=== PATIENT | female | born 1945 | race Caucasian/White ===

== ENCOUNTER 2018-06-08 22:28 | Inpatient (IN) | payer MEDICARE, BC ==
[~2018-06-08] VITALS: Ht 157.5 cm; Wt 45.4 kg
[~2018-06-08 22:28] MED LIST: ASPI-605 PO; METO50TA16 PO; RISE35TA8 PO
--- NOTE | 2018-06-08 22:55 | NUR ---
BB RA FROM HOME C/C SLIP AND FALL AT HOME, LEFT UPPER FEMUR/HIP PAIN S/P FALL.-KO. PT DENIES SYNCOPE. PT DENIES HEAD TRAUMA. PT DENIES DIZZINESS. -N/V. DEFORMITY OF LEFT LEG NOTED. PT STATES "SEVERE" PAIN WHEN TRYING TO MOVE LEFT LEG. SKIN INTACT, WARM, AND DRY TO TOUCH. PT IS AAOX4. PT PLACED ON STORM SASH MAKER AND POX. PT SAFETY AND COMFORT MEASURES IN PLACE. RR EVEN AND UNLABORED. NO S/S OF ACUTE DISTRESS NOTED. BEDSIDE FOR EVAL.
[2018-06-08] MEDS ORDERED: MORPHINE SULFATE INJ 2 MG/ML DISP.SYRIN IV ONE (23:00)
[2018-06-08] MEDS ORDERED: ONDANSETRON HCL/PF - ER 4 MG/2 ML VIAL IV ONE (23:00)
[2018-06-08] MEDS ORDERED: MORPHINE SULFATE INJ 4 MG/ML DISP.SYRIN ONE (23:01)
[2018-06-08] MEDS ORDERED: ONDANSETRON HCL/PF 4 MG/2 ML VIAL ONE (23:01)
--- NOTE | 2018-06-08 23:07 | NUR ---
CALLED [facility]ER, MACHINE SKIVER WAS PAGED.
[2018-06-08] MEDS ORDERED: PROPOFOL 20 ML IV ONE (23:27)
[2018-06-08] MEDS ORDERED: PROPOFOL 200 MG/20 ML VIAL IV ONE (23:30)
[2018-06-08 23:40] LABS: BASOPHILS % (AUTO) 0.1 % (0.0-2.0); EOSINOPHILS % (AUTO) 1.7 % (0.0-6.0); HEMATOCRIT 40 % (33-45); HEMOGLOBIN 12.6 g/dL (11.5-14.8); LYMPHOCYTES # (AUTO) 2.5 /CMM (0.8-4.8); LYMPHOCYTES % (AUTO) 32.7 % (20.0-44.0); MEAN CORPUSCULAR HGB CONC 32 g/dl (31.0-36.0); MEAN CORPUSCULAR VOLUME 101 fL (82-100); MONOCYTES # (AUTO) 0.6 /CMM (0.1-1.30); MONOCYTES % (AUTO) 7.8 % (2.0-12.0); NEUTROPHILS # (AUTO) 4.4 /CMM (1.8-8.9); NEUTROPHILS % (AUTO) 57.7 % (43.0-81.0); PLATELET COUNT (AUTO) 189 /CMM (150-450); RDW COEFFICIENT OF VARIATION 13.5 (11.5-15.0); RED BLOOD CELL COUNT(AUTO) 3.92 MIL/uL (4.0-5.2); WHITE BLOOD COUNT (AUTO) 7.6 K/uL (4.3-11.0)
[2018-06-08 23:51] LABS: CALCIUM, SERUM 9.4 mg/dL (8.5-10.1); CARBON DIOXIDE 27 mmol/L (21-32); CHLORIDE 105 mmol/L (98-107); GLUCOSE 115 mg/dL (74-106); POTASSIUM 4.1 mmol/L (3.5-5.1); SODIUM SERUM 141 mmol/L (136-145); UREA NITROGEN, BLOOD 39 mg/dL (7-18)
[2018-06-08 23:55] LABS: INR 1.06 (0.87-1.13)
--- NOTE | 2018-06-08 23:58 | NUR ---
CONSCIOUS SEDATION PERFORMED WITH MD BAUTISTA, RT JESSICA, EMT ALAYNA, AND CONNOR MUSTAFA BEDSIDE. SEDATION AND LEFT FEMURE REDUCTION SUCCESSFUL AND PT AAOX4, RR EVEN AND UNLABORED. WILL CONTINUE TO MONITOR PT.
--- NOTE | 2018-06-09 00:28 | NUR ---
REPORT GIVEN TO OMERO BROWN FOR DOUG.
[2018-06-09] MEDS ORDERED: MORPHINE SULFATE INJ 2 MG/ML DISP.SYRIN IV PRN ×2 (00:30→22:30)
[2018-06-09] MEDS ORDERED: Z GUARD REMEDY 2 OZ OINT TP PRN (00:30)
[2018-06-09] MEDS ORDERED: ONDANSETRON HCL/PF 4 MG/2 ML VIAL IVP PRN (00:30)
[2018-06-09] MEDS ORDERED: IV NS 0.9% 1,000 ML BAG IV ONE (00:30)
[2018-06-09] MEDS ORDERED: ACETAMINOPHEN 325 MG TABLET PO PRN ×2 (00:30→22:30)
[2018-06-09] MEDS ORDERED: IV D5/ 0.9% NACL 1,000 ML IV ONE (00:30)
[2018-06-09] MEDS ORDERED: ZOLPIDEM TARTRATE 5 MG TABLET PO PRN (00:30)
[2018-06-09] MEDS ORDERED: MAG HYDROX/AL HYDROX/SIMETH 30 ML UDC PO PRN (00:30)
[2018-06-09] MEDS ORDERED: MAGNESIUM HYDROXIDE 30 ML UDC PO PRN (00:30)
[2018-06-09 00:34] LABS: APPEARANCE,URINE SL CLOUDY (CLEAR); BILIRUBIN,URINE NEGATIVE (NEGATIVE); BLOOD, URINE 1+ Ery/uL (NEGATIVE); COLOR,URINE YELLOW (YELLOW); KETONES,URINE NEGATIVE (NEGATIVE); LEUKOCYTE ESTERASE ,URINE NEGATIVE (NEGATIVE); NITRITE, URINE NEGATIVE (NEGATIVE); PROTEIN,URINE TRACE mg/dl (NEGATIVE); UGLUCOSE NEGATIVE (NEGATIVE); UROBILINOGEN,URINE 0.2 EU/dL (0.2)
[2018-06-09 00:41] LABS: BACTERIA,URINE None seen /HPF (None Seen); MUCUS,URINE Few /LPF (None Seen); SQUAMOUS EPITHELIAL CELL,UR Few /HPF (None Seen); WBC,URINE 0-2 /HPF (0-3)
[2018-06-09 00:55] VITALS: BP 150/60
--- NOTE | 2018-06-09 01:20 | NUR ---
NEW ADMISSION NOTES RECEIVED PATIENT FROM ER TO ROOM 310-2, MED SURG, ACCOMPANIED BY STAFF. A & O X 3, BELARUSIAN SPEAKING. NO SOB, NO ACUTE DISTRESS OR DISCOMFORT VERBALIZED. PT C/O MILD PAIN TO LEFT HIP BUT TOLERABLE AT THIS TIME. ON O2 @ 2LPM VIA NC TO KEEP O2 >93%. NPO ORDERED. MADE COMFORTABLE IN BED. REYNA CATH IN PLACE, DRAINING CLEAR, YELLOW COLOR URINE. IV ACCESS TO RFA WITH IVF ORDERED & LFA, SALINE LOCK, INTACT PATENT. BODY ASSESSMENT DONE, PICTURES TAKEN, PLACED IN THE CHART. ALL NEW ORDERS VERIFIED WITH MD, NOTED & CARRIED OUT. ALL BELONGINGS ACCOUNTED FOR & DOCUMENTED BY ARTIFICIAL STONE SETTER. ALL NEEDS ATTENDED TO & MET. SAFETY MEASURES IN PLACE. BED IN LOW LOCKED POSITION. CALL LIGHT WITHIN REACH. WILL CONTINUE TO MONITOR CLOSELY FOR PAIN MANAGEMENT.
--- NOTE | 2018-06-09 02:52 | NUR ---
MS RN NOTE PATIENT NOTED TO BE SLEEPING COMFORTABLY AT THIS TIME. OBSERVING CLOSELY FOR PAIN MANAGEMENT.
--- NOTE | 2018-06-09 06:30 | NUR ---
MS RN CLOSING NOTES PATIENT IS RESTING IN BED, STABLE, A & O X 3, DANISH SPEAKING. NO SOB, NO ACUTE DISTRESS OR DISCOMFORT VERBALIZED. PT C/O MILD PAIN TO LEFT HIP BUT TOLERABLE AT THIS TIME. HAS LEFT KNEE IMMOBILIZER IN PLACE FROM ER. ON O2 @ 2LPM VIA NC TO KEEP O2 >93%. NPO ORDERED. REYNA CATH IN PLACE, DRAINING TEA COLOR URINE. IV ACCESS TO RFA WITH IVF ORDERED & LFA, SALINE LOCK, INTACT PATENT. ALL NEEDS ATTENDED TO & MET. SAFETY MEASURES IN PLACE. BED IN LOW LOCKED POSITION. CALL LIGHT WITHIN REACH. WILL ENDORSE TO AM RN FOR CONTINUITY OF CARE.
--- NOTE | 2018-06-09 07:10 | NUR ---
RN NOTES RECEIVED PATIENT IN BED, A/OX3. NO SOB, NO ACUTE DISTRESS OR DISCOMFORT. C/O MILD PAIN TO LEFT HIP BUT TOLERABLE AT THIS TIME. HAS LEFT KNEE IMMOBILIZER IN PLACE FROM ER. ON O2 @ 2LPM VIA NC TO KEEP O2 >93%. NPO ORDERED. REYNA CATH IN PLACE, DRAINING TEA COLOR URINE. IV ACCESS TO RFA WITH IVF ORDERED & LFA, SALINE LOCK, INTACT PATENT. ALL NEEDS ATTENDED TO & MET. SAFETY MEASURES IN PLACE. BED IN LOW LOCKED POSITION. CALL LIGHT WITHIN REACH. WILL CONTINUE TO MONITOR.
[2018-06-09] MEDS: ASPIRIN EC 81 MG TABLET.DR PO SCH (08:28)
[2018-06-09] MEDS: METOPROLOL TARTRATE 50 MG TABLET PO SCH (08:28)
[2018-06-09 08:33] VITALS: BP 127/71
[2018-06-09 16:00] VITALS: BP 105/66
--- NOTE | 2018-06-09 16:50 | NUR ---
RN NOTES PATIENT TAKEN TO OR FOR LEFT HIP SURGERY, IN NO DISTRESS. ALL CONSENTS SIGNED.
[2018-06-09] MEDS ORDERED: CEFAZOLIN 1 GM ONE (17:23)
[2018-06-09] MEDS ORDERED: ROCURONIUM BROMIDE 50 MG/5 ML ONE ×2 (17:37→18:27)
[2018-06-09] MEDS ORDERED: BACITRACIN 50000 UNITS/VIAL ONE (18:13)
[2018-06-09] MEDS ORDERED: BUPIVACAINE 0.5 % PF 150 MG/30 ML VIAL ONE (18:13)
[2018-06-09 20:00] VITALS: BP 117/55
[2018-06-09 20:15] VITALS: BP 124/75
--- NOTE | 2018-06-09 20:15 | NUR ---
RN NOTES PT. CAME FROM OR FOR S/P ORIF ON THE LEFT HIP DRESSING DRY AND INTACT, MAKE PT. COMFORTABLE, DENIES PAIN AT THIS TIME, NO SOB, CALL LIGHT WITHIN REACH, [id number], CONTINUE TO MONITOR
--- NOTE | 2018-06-09 21:24 | NUR ---
RN NOTES SPOKE TO DR. ROBERTSON AND GOT AN ORDER OF IV FLUID .. LR @ 75ML/HRX1 ORDER NOTED AND CARRIED OUT
[2018-06-09] MEDS ORDERED: IV LR 1000 ML 1,000 ML IV ONE (22:00)
[2018-06-09] MEDS ORDERED: MORPHINE SULFATE INJ 4 MG/ML DISP.SYRIN IV PRN (22:30)
[2018-06-09] MEDS ORDERED: TRAMADOL HCL 50 MG TABLET PO PRN (22:30)
[2018-06-09] MEDS ORDERED: ENOXAPARIN SODIUM 40 MG/0.4 ML DISP.SYRIN SQ ONE (23:00)
[2018-06-10] MEDS ORDERED: CEFAZOLIN 1 GM ONE (02:21)
[2018-06-10] MEDS: CEFAZOLIN 1 GM in IV D5W 50 ML IV SCH ×3 (02:29→18:18)
[2018-06-10 06:53] LABS: CALCIUM, SERUM 7.4 mg/dL (8.5-10.1); CARBON DIOXIDE 26 mmol/L (21-32); CHLORIDE 109 mmol/L (98-107); CREATININE 0.7 mg/dL (0.6-1.3); GLUCOSE 126 mg/dL (74-106); HEMATOCRIT 30 % (33-45); HEMOGLOBIN 9.7 g/dL (11.5-14.8); LYMPHOCYTES # (AUTO) 0.6 /CMM (0.8-4.8); LYMPHOCYTES % (AUTO) 5.8 % (20.0-44.0); MAGNESIUM 1.8 mg/dL (1.8-2.4); MEAN CORPUSCULAR HGB CONC 33 g/dl (31.0-36.0); MEAN CORPUSCULAR VOLUME 101 fL (82-100); MONOCYTES # (AUTO) 0.8 /CMM (0.1-1.30); MONOCYTES % (AUTO) 8.1 % (2.0-12.0); NEUTROPHILS # (AUTO) 8.7 /CMM (1.8-8.9); NEUTROPHILS % (AUTO) 86.1 % (43.0-81.0); PHOSPHORUS 2.7 mg/dL (2.5-4.9); PLATELET COUNT (AUTO) 145 /CMM (150-450); POTASSIUM 4.4 mmol/L (3.5-5.1); RDW COEFFICIENT OF VARIATION 13.7 (11.5-15.0); RED BLOOD CELL COUNT(AUTO) 2.94 MIL/uL (4.0-5.2); SODIUM SERUM 141 mmol/L (136-145); UREA NITROGEN, BLOOD 24 mg/dL (7-18); WHITE BLOOD COUNT (AUTO) 10.1 K/uL (4.3-11.0)
[2018-06-10] MEDS ORDERED: MORPHINE SULFATE INJ 4 MG/ML DISP.SYRIN IV PRN (07:35)
[2018-06-10 08:00] VITALS: BP 104/70
--- NOTE | 2018-06-10 08:00 | NUR ---
RN MS OPENING NOTES RECEIVED PATIENT IN BED, AWAKE AOX2-3, BREATHING EVEN AND UN LABORED, NO SOB, ON NC 3L. SKIN WARM, SOFT TOUCH. NO COMPLAINT OF PAIN OR DISCOMFORT, ABLE TO PERFORM ADLS IN BED WITH MINIMAL ASSISTANCE, REYNA IN PLACE AND DRAINING, VOIDING TO A STRAW YELLOW. BED IN LOWEST LOCKED POSITION, CALL LIGHT WITHIN REACH AT ALL TIMES.
[2018-06-10] MEDS: METOPROLOL TARTRATE 50 MG TABLET PO SCH (08:43)
[2018-06-10] MEDS: ASPIRIN EC 81 MG TABLET.DR PO SCH (08:44)
--- NOTE | 2018-06-10 11:00 | NUR ---
RN NOTES RECEIVED ORDER TO TITRATE DOWN OXYGEN TO ROOM AIR, MEASURED PULSE OX ON ROOM AIR 98-100%, OXYGEN SUCCESSFULLY TITRATED DOWN TO ROOM AIR.
[2018-06-10 16:00] VITALS: BP 113/61
--- NOTE | 2018-06-10 18:57 | NUR ---
RN CLOSING NOTES PATIENT REMAINS IN BED, AWAKE ALERT AND ORIENTED X2-3, BREATHING EVEN AND UNLABORED ON ROOM AIR. NO COMPLAINT OF PAIN OR DISCOMFORT SO FAR, OFFERED PAIN MEDICINE AFTER PT AND REFUSED. ON IV ATB VIA RIGHT FOREARM #20G, ALSO HAS A RIGHT FA SALINE LOCK #18 G. BED IN LOWEST LOCKED POSITION, CALL LIGHT WITHIN REACH AT ALL TIMES, WILL ENDORSE TO NIGHT NURSE FOR DOUG
--- NOTE | 2018-06-10 19:38 | NUR ---
MS/RN OPENING NOTES RECEIVED PATIENT IN BED, AWAKE, ALERT X3, BAD [place] BAND, FAMILY AT BEDSIDE, ABLE TO VERBALIZE NEEDS, CAN TOLERATE PAIN AT THIS TIME BUT WILL CALL FOR ANY PAIN DURING THE NIGHT. RECEIVED REPORT FOR DOUG. CALL LIGHTS WITHIN REACH, , ABLE TO EAT DINNER AND WAS OFFERED FOR ANY SNACKS AND WILL MONITOR FOR ANY CONCERNS. BED IN LOCK POSIITON. ON REYNA, DRAINING, AFTER SURGERY, IV FLUIDS RUNNING, WILL CONTINUE TO MONITOR. SKIN WARM TO TOUCH,
[2018-06-10 20:00] VITALS: BP 111/62
--- NOTE | 2018-06-10 20:00 | NUR ---
MS/RN NOTES PATIENT REFUSE TO TAKE PAIN MEDICATIONS AND PREFERED TO BE IN POSITION OF COMFORT AND DO NOT WANT TO BE TURNED AT THIS TIME
--- NOTE | 2018-06-10 20:09 | NUR ---
MS/RN NOTES PULSE RATE ELEVATED BETWEEN 155-117, B/P AT 111/62, OXYGEN SATURATION AT 98 %, PER PATIENT DID NOT TAKE THE DAILY SCHEDULED OF METOPROLOL, VERBALIZED THE NEED TO INFORM MD, REFUSE TO TAKE PAIN MEDICATION AT THIS TIME, CHARGE NURSE MADE AWARE, AND PATIETN WILL BE MONITORED AND WILL F/U WITH TONIGHT FOR ANY ORDER FOR INCREASE PULSE RATE.
--- NOTE | 2018-06-10 20:27 | NUR ---
MS/RN NOTES MD CONTACTED LEFT MESSAGE TO INFORM ELEVATED PULSE RATE THAT PATIENT DID NOT TAKE METOPROLOL DURING DAY TIME WAS ON HOLD REPORTED B/P LOW, PATIENT REQUESTED MD TO BE INFORM AND TO MADE AWARE THAT PATIENT WOULD LIKE TO TAKE THE MEDICATION THAT WAS HELD IN AM.
[2018-06-10] MEDS ORDERED: METOPROLOL TARTRATE 50 MG TABLET PO ONE (21:00)
--- NOTE | 2018-06-10 21:38 | NUR ---
ms/rn notes PATIENT PULSE RATE WITHIN NORMAL RANGE AT 95-97, PATIENT REPORTED FEELING MUCH BETTER.
[2018-06-10 21:59] VITALS: BP 112/60
[2018-06-10] MEDS ORDERED: ENOXAPARIN SODIUM 40 MG/0.4 ML DISP.SYRIN SQ SCH (22:00)
[2018-06-11] MEDS: HYDROCODONE/APAP 5/325MG 1 EACH TABLET PO PRN ×2 (00:19→09:59)
--- NOTE | 2018-06-11 06:23 | NUR ---
310-1MS/RN NOTES PATIENT ABLE TO SLEEP DURING THE NIGHT, REQUESTED PAIN MEDICATION, RESPIRATIONS EVEN AND UNLABORED, TOLERATED FLUIDS, PULSE RATE WITHIN RANGE, REPOSITIONED FOR COMFORT, BED IN LOCK POSITION, CALL LIGHTS WITHIN REACH, IV HEPLOCK. WILL CONTINUE TO MONITOR AND WILL ENDORSE TO AM RN FOR DOUG.
[2018-06-11 06:40] LABS: CALCIUM, SERUM 7.7 mg/dL (8.5-10.1); CARBON DIOXIDE 27 mmol/L (21-32); CHLORIDE 106 mmol/L (98-107); CREATININE 0.8 mg/dL (0.6-1.3); GLUCOSE 112 mg/dL (74-106); POTASSIUM 4.5 mmol/L (3.5-5.1); SODIUM SERUM 140 mmol/L (136-145); UREA NITROGEN, BLOOD 22 mg/dL (7-18)
[2018-06-11 07:33] LABS: BASOPHILS % (AUTO) 0.2 % (0.0-2.0); HEMATOCRIT 27 % (33-45); HEMOGLOBIN 8.9 g/dL (11.5-14.8); LYMPHOCYTES # (AUTO) 1.3 /CMM (0.8-4.8); LYMPHOCYTES % (AUTO) 14.7 % (20.0-44.0); MEAN CORPUSCULAR HGB CONC 33 g/dl (31.0-36.0); MEAN CORPUSCULAR VOLUME 100 fL (82-100); NEUTROPHILS # (AUTO) 6.4 /CMM (1.8-8.9); NEUTROPHILS % (AUTO) 73.1 % (43.0-81.0); PLATELET COUNT (AUTO) 139 /CMM (150-450); RDW COEFFICIENT OF VARIATION 13.7 (11.5-15.0); RED BLOOD CELL COUNT(AUTO) 2.67 MIL/uL (4.0-5.2); WHITE BLOOD COUNT (AUTO) 8.7 K/uL (4.3-11.0)
[2018-06-11 08:00] VITALS: BP 106/64
[2018-06-11] MEDS ORDERED: IV NS 0.9% 1,000 ML IV ONE (08:30)
[2018-06-11] MEDS: ASPIRIN EC 81 MG TABLET.DR PO SCH (08:40)
[2018-06-11] MEDS: METOPROLOL TARTRATE 50 MG TABLET PO SCH (08:44)
--- NOTE | 2018-06-11 08:45 | NUR ---
MS RN INITIAL NOTES Patient is sitting up in bed, had breakfast with fair appetite. On room air, tolerating well, denies shortness of breath. Left hip incision dressing intact, clean and dry, no bleeding. SCD in place, no complaint of pain. Call light within reach.
[2018-06-11] MEDS ORDERED: ACET325T53 PO (12:58)
[2018-06-11] MEDS ORDERED: HYDR-3972 PO (12:58)
[2018-06-11] MEDS ORDERED: RIVA10TA PO (12:58)
[2018-06-11 16:00] VITALS: BP 110/64
--- NOTE | 2018-06-11 19:05 | NUR ---
MS RN NOTES RECEIVED PT IN BED, AT BEDSIDE. PT IS A/O X 3, VERBALLY RESPONSIVE. NO DISTRESS, NOR SOB NOTED AT THIS TIME. IV SITE ON LFA INTACT AND PATENT, NO S/S OF INFILTRATION NOTED. PT ON S/P LEFT HIP ORIF DONE ON 06/09. LEFT HIP DRESSING INTACT, CLEAN AND DRY. DENIES ANY PAIN OR DISCOMFORT AT THIS TIME. NO BLEEDING NOTED. PT FOR DC TO [facility] , AWAITING FOR TRANSPORTATION, EXIT CARE AND PICTURES DONE BY DAY SHIFT RN. SAFETY PRECAUTIONS OBSERVED. ALL NEEDS ATTENDED AND MET. KEPT COMFORTABLE. CALL LIGHT WITHIN REACH. WILL CONTINUE TO MONITOR. Addendum: 06/11/18 at 1959 by EDSON HENSLEY RN INCORRECT DOCUMENTATION TIME.
--- NOTE | 2018-06-11 19:07 | NUR ---
MS RN DISCHARGED Patient has been cleared for discharge to Rehab by MD. VS remained stable, patient ambulates with PT today, tolerating well. Left hip incision dressing intact, clean and dry, no bleeding noted. Discharge instruction given to patient, verbalized understanding. Urinary cath removed at 1800 obtained 800ml urine clear and yellow. Patient had dinner with fair appetite. Called [facility] spoke with KENJI Lora for report. Home medications not found from pharmacy today spoke with Marquis, checked pharmacy log book, home medications released 06/10/18 with signature. When asked patient, spouse at the bedside, per Morgan/spouse he has the medication and brought back home yesterday. Awaiting ambulance for tile picker. Will endorse to oncoming RN.
--- NOTE | 2018-06-11 19:09 | NUR ---
MS RN NOTES RECEIVED PT IN BED, AT BEDSIDE. PT IS A/O X 3, VERBALLY RESPONSIVE. NO DISTRESS, NOR SOB NOTED AT THIS TIME. IV SITE ON LFA INTACT AND PATENT, NO S/S OF INFILTRATION NOTED. PT ON S/P LEFT HIP ORIF DONE ON 06/09. LEFT HIP DRESSING INTACT, CLEAN AND DRY. DENIES ANY PAIN OR DISCOMFORT AT THIS TIME. NO BLEEDING NOTED. PT FOR DC TO [facility] , AWAITING FOR TRANSPORTATION, EXIT CARE AND PICTURES DONE BY DAY SHIFT RN. SAFETY PRECAUTIONS OBSERVED. ALL NEEDS ATTENDED AND MET. KEPT COMFORTABLE. CALL LIGHT WITHIN REACH. WILL CONTINUE TO MONITOR.
--- NOTE | 2018-06-11 19:45 | NUR ---
PT REMAINS A/O X 3, VERBALLY RESPONSIVE. STABLE. NO ACUTE DISTRESS NOR SOB NOTED. RESPIRATION IS EVEN AND UNLABORED. DISCHARGE INSTRUCTIONS GIVEN TO THE PT AND , VERBALIZED UNDERSTANDING. IV ON RFA REMOVED, APPLIED PRESSURE , NO BLEEDING NOTED. PT DENIES ANY PAIN OR DISCOMFORT AT THIS TIME. REPORT GIVEN TO [facility] NURSE BY MILAGROS PHILLIP. ALL BELONGINGS SENT WITH WITH PT'S . PT WS PICKED UP BY 2 [facility] CREW, ENDORSED AND REPORT GIVEN ACCORDINGLY. ABLE TO GET INSIDE THE ELEVATOR SAFELY.
== END 2018-06-11 19:43 | DRG 481 ==
LOC: ER 22:34 → MED 06-09
PROVIDERS: ADMIT Internal Medicine
PROC: 0QS904Z Reposition Left Femoral Shaft with Internal Fixation Device, Open Approach (ICD-10-PCS; principal; 2018-06-09 18:00)
DX: S72.302A Unspecified fracture of shaft of left femur, initial encounter for closed fracture (principal); M80.852A Other osteoporosis with current pathological fracture, left femur, initial encounter for fracture; W01.0XXA Fall on same level from slipping, tripping and stumbling without subsequent striking against object, initial encounter; Y92.008 Other place in unspecified non-institutional (private) residence as the place of occurrence of the external cause; Z95.2 Presence of prosthetic heart valve; Z79.899 Other long term (current) drug therapy; Z79.82 Long term (current) use of aspirin; D16.9 Benign neoplasm of bone and articular cartilage, unspecified; I73.9 Peripheral vascular disease, unspecified
CPT/HCPCS: 36415; 71045-TC; 73020; 73502; 73552; 80048-TC; 81000-TC; 83735-TC; 84100-TC; 85025-TC; 85730-TC; 86850-TC; 87081-TC; 93307-TC; 97110-TC; 97116-TC; 97530-TC; A4606; A6209; A6402; C1713; J0690; J1100; J1165; J1650; J2270; J2405; J2704; J2710; J3490; J7030; J7040; J7042; J7060; J7120; Z7610